=== PATIENT | female | born 1965 | race Hispanic/Latino ===

== ENCOUNTER 2021-06-03 16:01 | Emergency (ER) | payer SELFPAY ==
[2021-06-03 16:50] VITALS: BP 169/115
--- NOTE | 2021-06-03 16:56 | Emergency Department Report ---
ED ENT HPI - General Chief complaint: Dental/Oral Stated complaint: TOOTHACHE Time Seen by Provider: 06/03/21 16:47 Source: patient Mode of arrival: Ambulatory Limitations: No Limitations - History of Present Illness Initial comments: Patient is a 55-year-old female presents emergency room with complaints of left lower dental pain that began 3 weeks ago. She states that she last saw a dentist 3 years ago. She states that she cannot get into a dentist for another month. She states that she feels like the left side of her face is pulling. She denies any fever, nausea, vomiting, diarrhea, difficulty swallowing, difficulty breathing. past medical history of hyperthyroidism. No allergies to medications. - Related Data Previous Rx's Medication Instructions Recorded Last Taken Type Chlorhexidine Mouthwash [Peridex] 15 ml MM BID #1 bottle 06/03/21 Unknown Rx Naproxen [EC-Naproxen] 500 mg PO BID PRN #20 tablet. 06/03/21 Unknown Rx Penicillin Vk [Veetids TAB] 500 mg PO QID 7 Days #56 tablet 06/03/21 Unknown Rx Allergies Allergy/AdvReac Type Severity Reaction Status Date / Time No Known Allergies Allergy Unverified 06/03/21 16:48 ED Dental HPI - General Chief complaint: Dental/Oral Stated complaint: TOOTHACHE Time Seen by Provider: 06/03/21 16:47 Source: patient Mode of arrival: Ambulatory Limitations: No Limitations - Related Data Previous Rx's Medication Instructions Recorded Last Taken Type Chlorhexidine Mouthwash [Peridex] 15 ml MM BID #1 bottle 06/03/21 Unknown Rx Naproxen [EC-Naproxen] 500 mg PO BID PRN #20 tablet. 06/03/21 Unknown Rx Penicillin Vk [Veetids TAB] 500 mg PO QID 7 Days #56 tablet 06/03/21 Unknown Rx Allergies Allergy/AdvReac Type Severity Reaction Status Date / Time No Known Allergies Allergy Unverified 06/03/21 16:48 ED Review of Systems ROS: Stated complaint: TOOTHACHE Other details as noted in HPI Comment: All other systems reviewed and negative ED Past Medical Hx - Past Medical History Previous Medical History?: No - Surgical History Past Surgical History?: No - Medications Home Medications: Home Medications Medication Instructions Recorded Confirmed Last Taken Type Chlorhexidine Mouthwash [Peridex] 15 ml MM BID #1 bottle 06/03/21 Unknown Rx Naproxen [EC-Naproxen] 500 mg PO BID PRN #20 tablet. 06/03/21 Unknown Rx Penicillin Vk [Veetids TAB] 500 mg PO QID 7 Days #56 tablet 06/03/21 Unknown Rx ED Physical Exam - General Limitations: No Limitations General appearance: alert, in no apparent distress - Head Head exam: Present: atraumatic, normocephalic - ENT ENT exam: Present: mucous membranes moist, other (there is a cracked tooth with dental carries present there is associated edema of the gumline, uvula is midline, no uvular edema or deviation, no trismus, no tongue elevation, no muffled voice, no submandibular edema) - Respiratory Respiratory exam: Absent: respiratory distress, accessory muscle use - Neurological Exam Neurological exam: Present: alert, oriented X3 - Psychiatric Psychiatric exam: Present: normal affect, normal mood - Skin Skin exam: Present: warm, dry, intact ED Course Vital Signs 06/03/21 16:48 Temperature 98.0 F Pulse Rate 75 Respiratory 16 Rate Blood Pressure 169/115 [Right] O2 Sat by Pulse 97 Oximetry ED Medical Decision Making - Medical Decision Making Patient is a 55-year-old female presents emergency room with complaints of left lower dental pain that began 3 weeks ago. She states that she last saw a dentist 3 years ago. She states that she cannot get into a dentist for another month. She states that she feels like the left side of her face is pulling. She denies any fever, nausea, vomiting, diarrhea, difficulty swallowing, difficulty breathing. past medical history of hyperthyroidism. No allergies to medications. on exam: there is a cracked tooth with dental carries present there is associated edema of the gumline, uvula is midline, no uvular edema or deviation, no trismus, no tongue elevation, no muffled voice, no submandibular edema. Examination appears consistent with dental carry with small dental abscess. Patient given prescription for medications. Given a list of community dental clinics. Advised patient Please take medication as prescribed. Please follow-up with a dentist. it is very important that you follow-up. Please start calling dental clinics tomorrow. Return to emergency room for any new or worsening symptoms. Critical care attestation.: If time is entered above; I have spent that time in minutes in the direct care of this critically ill patient, excluding procedure time. ED Disposition Clinical Impression: Dental caries, Cracked tooth, Dental abscess Disposition: DC- TO HOME OR SELFCARE Is pt being admited?: No Does the pt Need Aspirin: No Condition: Stable Instructions: Dental Abscess Additional Instructions: Please take medication as prescribed. Please follow-up with a dentist. it is very important that you follow-up. Please start calling dental clinics tomorrow. Return to emergency room for any new or worsening symptoms. Prescriptions: Naproxen [EC-Naproxen] 500 mg PO BID PRN #20 tablet. PRN Reason: pain Chlorhexidine Mouthwash [Peridex] 15 ml MM BID #1 bottle Penicillin Vk [Veetids TAB] 500 mg PO QID 7 Days #56 tablet Referrals: [facility] [Outside] - 2-3 Days [facility] [Outside] - 2-3 Days Time of Disposition: 16:58 Print Language: INDONESIAN
== END 2021-06-03 18:30 | disposition home or self-care (01) ==
LOC: ED 16:01
DX: K02.9 Dental caries, unspecified (principal); K04.7 Periapical abscess without sinus; K03.81 Cracked tooth; Z79.899 Other long term (current) drug therapy
CPT/HCPCS: 99281